=== PATIENT | male | born 1985 | race Caucasian/White ===

== ENCOUNTER 2018-02-27 19:16 | Emergency (ER) | payer SELFPAY ==
[2018-02-27 19:17] VITALS: BP 172/127; PULSE 89; RESP 20; TEMP 36.7; O2SAT 98; BMI 20.2
[2018-02-27 19:34] VITALS: BP 166/106; PULSE 80; RESP 14; O2SAT 98
--- NOTE | 2018-02-27 20:34 | EKG12_ITS ---
Test Reason : HTN Blood Pressure : / mmHG Vent. Rate : 079 BPM Atrial Rate : 079 BPM P-R Int : 170 ms QRS Dur : 106 ms QT Int : 386 ms P-R-T Axes : 079 088 053 degrees QTc Int : 442 ms Normal sinus rhythm with sinus arrhythmia Normal ECG Confirmed by AYESHA TAI, JUVENTINO ([id number]), newspaper managing editor WILLIAN JACQUES ([id number]) on 03/06/2018 3:25:24 PM Referred By: PABLITO Confirmed By:JUVENTINO HODGE MD
--- NOTE | 2018-02-27 20:37 | ED.RN ---
NO OLD EKGS IN MUSE.
[2018-02-27 20:48] LABS: Absolute Lymphocyte Count 0.86 X10^3/ul (0.83-4.51); Absolute Neutrophil Count 3.6 X10^3/uL (2.0-7.7); Basophil# 0.03 X10^3/uL; Basophil% 0.6 % (0-1); Eosinophil# 0.01 X10^3/uL; Eosinophils% 0.2 % (0-5); Hematocrit 48.6 % (40-54); Hemoglobin 16.9 g/dl (13.0-16.5); Lymphocyte # 0.86 X10^3/ul (4.0); Lymphocyte % 16.5 % (19-41); Mean Corp Hgb Conc 34.8 g/gl (32-36); Mean Corpuscular Hgb 34.7 pg (27.0-32.0); Mean Corpuscular Volume 99.8 fL (80-94); Mean Platelet Vol. 11.1 fl (6.2-12.0); Monocyte# 0.66 X10^3/uL; Monocyte% 12.7 % (0-10); Neutrophil # 3.63 X10^3/uL (2.7-7.7); Neutrophil % 69.8 % (47-70); Platelet Count 159 K/mm3 (150-450); RBC Distribution Width CV 12.9 % (11.6-14.6); RBC Distribution Width SD 47.3 fl (35.1-43.9); Red Blood Count 4.87 M/mm3 (4.6-6.2); White Blood Count 5.2 K/mm3 (4.4-11.0)
[2018-02-27 20:49] LABS: POSITIVE COUNT NO; POSITIVE DIFFERENTIAL NO; POSITIVE MORPHOLOGY NO
--- NOTE | 2018-02-27 20:52 | ED.VISSUMM ---
- ER Visit Summary Date of Service: 02/27/18 Chief Complaint: [] History of Present Illness: The patient is a 33 M [] Physical Examination: [] Test Results: [] Emergency Department Course and Treatment: [] Treatment Plan: [] Disposition: [] Impression: [] This note was generated with [employer] dictation software. It may contain incorrect words, spelling, and punctuation that were not noted in review of the chart prior to signing ED Disposition - Plan for ED Patient: Chief Complaint: Hypertension Referrals: Latesha Clarke [Primary Care Provider] -
--- NOTE | 2018-02-27 20:57 | ED.DCSUM_ITS ---
- ER Visit Summary Date of Service: 02/27/18 Chief Complaint: [] History of Present Illness: The patient is a 33 M [] Physical Examination: [] Test Results: [] Emergency Department Course and Treatment: [] Treatment Plan: [] Disposition: [] Impression: [] This note was generated with [employer] dictation software. It may contain incorrect words, spelling, and punctuation that were not noted in review of the chart prior to signing ED Disposition - Plan for ED Patient: Chief Complaint: Hypertension Referrals: Latesha Clarke [Primary Care Provider] -
[2018-02-27 20:59] LABS: ALB/GLOB Ratio 0.9 RATIO (0.9-2.4); AST(SGOT) 60 U/L (15-37); Alanine Aminotransfer ALT/SGPT 36 U/L (16-61); Albumin, Serum 4.1 g/dL (3.2-5.0); Alkaline Phosphatase 69 U/L (45-117); Anion Gap 8 (5-15); BUN 8 mg/dL (7-18); BUN/Creat Ratio 8.2 RATIO (10-20); Calcium,Total 8.9 mg/dL (8.5-10.1); Chloride 101 mmol/L (98-107); Creatinine, Serum 0.98 mg/dL (0.70-1.30); EST Glomerular Filtration Rate 93 mL/min (>60); Est Glom Filt Rate - Afr Amer 113 mL/min (>60); Estimated Creatinine Clearance 97.87 ml/min; Globulin 4.5 g/dL (2.2-4.2); Glucose 137 mg/dL (74-106); Potassium 4.4 mmol/L (3.5-5.1); Protein, Total 8.6 g/dL (6.4-8.2); Sodium Level 135 mmol/L (136-145)
[2018-02-27] MEDS: 0.9% Normal Saline 1,000 ML 999 ML IV (20:59)
[2018-02-27] MEDS: LORazepam 2 MG/ML Syringe 1 MG IV (20:59)
--- NOTE | 2018-02-27 21:01 | ED.DCSUM_ITS ---
History of Present Illness Chief Complaint: Hypertension Informant: Patient Onset: Today Narrative: Patient has had 1-2 weeks of malaise, increased fatigue, lightheadedness off and on, and feeling shaky off and on. He checked his blood pressure today and multiple times it was in the 160s systolic, which is why he presents to the ER. He denies a headache. He has had intermittent periumbilical abdominal cramping. Most of his symptoms are worse when he has not drank alcohol, he states he admits he is a bit of an alcoholic, he drinks beer. He also smokes but does no other illicit substances. He has attended some counseling sessions in [place], which are essentially similar to personalized AA, but he states he has not been in a while. He is not here for detox and does not desire it right now. His last drink was last night, almost 24 hours ago. Past Medical History - Allergies and Home Meds Allergies/Adverse Reactions: Allergies No Known Allergies Allergy (Verified 02/27/18 19:18) Primary Care Physician: Latesha Clarke [ALLIED HEALTH PROFESSIONAL] - Smoking Status: Current every day smoker Alcohol: Heavy Drugs: None Review of Systems General: Reports: Malaise, - - lightheaded off and on. Denies: Chills, Fever, Sweats Cardiovascular: Denies: Chest pain, Palpitations Respiratory: Denies: Dyspnea, Cough, Dyspnea on exertion Gastrointestinal: Reports: Abdominal pain - intermittent, not present now. Denies: Nausea, Vomiting, Diarrhea, Melena, Hematochezia Genitourinary: Denies: Dysuria, Hematuria, Frequency Musculoskeletal: Denies: Myalgias, Neck pain, Back pain, Swelling, Extremity Pain Skin: Denies: Rash Neurological: Reports: - - tremor/shaky. no vertigo.. Denies: Headache, Weakness, Numbness Psych: Denies: Suicidal thoughts, Suicidal ideations Endocrine: Denies: Polyuria, Polydipsia Hematologic: Denies: Easy bruising, Easy bleeding Allergy: Denies: Uticaria, Swelling of the mouth, Swelling of the tongue Physical Exam Vital Signs/Narrative: Vital Signs Temp Pulse Resp BP Pulse Ox 02/27/18 19:34 80 14 166/106 H 98 02/27/18 19:17 98.1 F 89 20 H 172/127 H 98 Inital Vital Signs reviewed: Yes General: Well nourished, Well developed, Cachectic Head: Normocephalic, Atraumatic Eyes: Perrl, EOMI ENT: Moist mucous membranes, No rhinorrhea Neck: Supple, Nontender Cardiovascular: Regular rate, Regular rhythm, No murmurs Respiratory: No distress, CTA bilaterally, Chest nontender Abdomen: Soft, Nontender, Nondistended, Normal bowel sounds Back: Nontender, Normal Inspection Extremities: Nontender, No edema Skin: Normal color, No rash Neurological: Alert - and not confused; appropriate answers to questions., Oriented x3, Cranial nerves II-XII grossly intact, Normal Strength, Normal Sensation, Normal DTR, - - tremulous, no myoclonus/seizure activity Psychological: Normal affect Diagnostic/Tx/Re-eval Laboratory Results 02/27/18 02/27/18 02/27/18 19:30 19:30 19:30 WBC 5.2 RBC 4.87 Hgb 16.9 H Hct 48.6 MCV 99.8 H MCH 34.7 H MCHC 34.8 RDW 12.9 RDW Differential 47.3 H Plt Count 159 MPV 11.1 Immature Gran % (Auto) 0.200 Neut % (Auto) 69.8 Lymph % (Auto) 16.5 L [place] % (Auto) 12.7 H Eos % (Auto) 0.2 Baso % (Auto) 0.6 Absolute Neuts (auto) 3.6 Absolute Lymphs (auto) 0.86 Total Counted Not Reportable Sodium 135 L Potassium 4.4 Chloride 101 Carbon Dioxide 26.0 Anion Gap 8 BUN 8 Creatinine 0.98 Estim Creat Clear Calc 97.87 Est GFR (MDRD) Af Amer 113 Est GFR (MDRD) Non-Af 93 BUN/Creatinine Ratio 8.2 L Glucose 137 H Calcium 8.9 Total Bilirubin 0.60 AST 60 H ALT 36 Alkaline Phosphatase 69 Total Protein 8.6 H Albumin 4.1 Globulin 4.5 H Albumin/Globulin Ratio 0.9 Urine Color Urine Clarity Urine pH Ur Specific [place] Urine Protein Urine Glucose (UA) Urine Ketones Urine Occult Blood Urine Nitrite Urine Bilirubin Urine Urobilinogen Ur Leukocyte Esterase Urine RBC Urine WBC Ur Squamous Epith Cells Urine Bacteria Urine Mucus Ethyl Alcohol 9.0 02/27/18 21:00 WBC RBC Hgb Hct MCV MCH MCHC RDW RDW Differential Plt Count MPV Immature Gran % (Auto) Neut % (Auto) Lymph % (Auto) [place] % (Auto) Eos % (Auto) Baso % (Auto) Absolute Neuts (auto) Absolute Lymphs (auto) Total Counted Sodium Potassium Chloride Carbon Dioxide Anion Gap BUN Creatinine Estim Creat Clear Calc Est GFR (MDRD) Af Amer Est GFR (MDRD) Non-Af BUN/Creatinine Ratio Glucose Calcium Total Bilirubin AST ALT Alkaline Phosphatase Total Protein Albumin Globulin Albumin/Globulin Ratio Urine Color Yellow Urine Clarity Clear Urine pH 7.0 Ur Specific [place] 1.010 Urine Protein 15 H Urine Glucose (UA) Normal Urine Ketones 5 H Urine Occult Blood Negative Urine Nitrite Negative Urine Bilirubin 1 H Urine Urobilinogen 4 H Ur Leukocyte Esterase 100 H Urine RBC 0-5 SEEN Urine WBC 0-5 SEEN Ur Squamous Epith Cells 0-5 SEEN Urine Bacteria 0 SEEN Urine Mucus RARE Ethyl Alcohol - Medical Decision Making Labs and urinalysis are unremarkable. His alcohol level was low. He states this is an unusual day for him to have not drink any alcohol. I suspect this is mild alcohol withdrawal. I offered detox several times and he declines and plans on going home and drinking. For that reason I think it is okay that he be discharged home. He is keenly alert and oriented x3 and is not delirious. I gave him a dose of Ativan and he felt better and was less tremulous. His blood pressure is down to 150. He does not remember the last time he checked his blood pressure and I do not think he needs emergency treatment of these numbers here, but I think it is reasonable to put him on a low-dose of something before he follows up with his doctor. He was encouraged to return at any time if he decides he wants detox and he was agreeable to that. ED Disposition - Plan for ED Patient: Disposition: Home or Assisted Living Chief Complaint: Hypertension Diagnosis: Alcohol withdrawal, Alcoholism, Elevated blood pressure reading Instructions: ED Hypertension Poss Prescriptions: Amlodipine Besylate [Norvasc] 5 mg PO DAILY #30 tab Referrals: Zeenat Smith DO [Primary Care Provider] - As soon as possible
[2018-02-27 21:05] LABS: Bacteria 0 SEEN /hpf (None Seen)
[2018-02-27 21:17] VITALS: BP 161/96; PULSE 82; RESP 15; O2SAT 98
[2018-02-27 21:25] LABS: Color, Urine Yellow (Yellow); Glucose, Dipstick Normal (Normal); Ketone-Dipstick 5 mg/dl (Negative); Leukocyte Esterase-Dipstick 100 /ul (Negative); Nitrite-Dipstick Negative (Negative); Occult Blood-Urine Negative /ul (Negative); Protein-Dipstick 15 mg/dl (Negative); Urine Clarity Clear (Clear); Urine Urobilinogen 4 mg/dl (Normal)
[2018-02-27 21:26] LABS: Urine Bilirubin Dipstick 1 mg/dL (Negative)
[2018-02-27 21:32] LABS: Mucous, Urine RARE /hpf (<or=2+); Red Blood Cells-Urine 0-5 SEEN /hpf (0-5); Squamous Epithelial Cells - UA 0-5 SEEN /hpf (0-5); White Blood Cells 0-5 SEEN /hpf (0-5)
[2018-02-27 23:00] VITALS: BP 161/98; PULSE 82; RESP 17; O2SAT 98
[2018-02-28 00:25] VITALS: BP 155/112; PULSE 81; RESP 17; O2SAT 99
== END 2018-02-28 00:26 | disposition home or self-care (01) ==
PROVIDERS: Emergency Provider Emergency Medicine; Family Provider Internal Medicine; PCP Internal Medicine
DX: F10.239 Alcohol dependence with withdrawal, unspecified (principal); Y90.9 Presence of alcohol in blood, level not specified; R03.0 Elevated blood-pressure reading, without diagnosis of hypertension
CPT/HCPCS: 80053; 80320; 81001; 85025; 93005; 99284; A4216; G0480

== ENCOUNTER 2022-02-05 17:09 | Emergency (ER) | payer OTHER, SELFPAY ==
[2022-02-05 17:10] VITALS: BP 133/105; PULSE 80; PULSE 83; RESP 16; RESP 18; TEMP 36.1; O2SAT 98; BMI 20.2
--- NOTE | 2022-02-05 17:16 | EX.ED.DYSGE1 ---
HPI History of Present Illness Chief Complaint: Lower Extremity Injury Narrative Narrative: Patient presents with right foot pain after hitting his foot 5 days ago. He is able to ambulate but has pain especially fourth and fifth toe region. No other injury no ankle pain or knee pain. [facility] Medical History Hypertension Mitral valve prolapse Home Medications atenolol 50 mg tablet 50 mg PO BID 02/05/22 [History Last Taken Unknown] Allergy/AdvReac Type Severity Reaction Status Date / Time No Known Allergies Allergy Verified 12/25/19 07:48 Social History Smoking Status: Current every day smoker tobacco type: cigarettes alcohol intake: current ROS ROS ED ROS Narrative Past medical history: Hypertension, history of alcohol abuse Medications: Reviewed Social history: Smoker Review of systems: Musculoskeletal: Foot pain as in HPI Skin: No abrasions or lacerations Neurological: No weakness or paresthesias Hematologic: No easy bleeding or easy bruising EXAM Physical Exam Narrative Exam Narrative: Physical exam General: Patient does not appear in significant distress . Head: Normocephalic, Atraumatic Neck: No C-spine tenderness Cardiovascular: Normal distal pulses Back: Nontender, Normal Inspection. Extremities: Right foot shows tenderness over the fourth and fifth toes there is a contusion in that region and very slight swelling. Neurovascularly intact. No other injury. Skin: No abrasions, no lacerations Neurological: Normal strength and sensation Const Vital Signs: 02/05/22 17:10 02/05/22 17:10 Temperature 96.9 F L 96.9 F L Temperature Source Temporal Temporal Pulse Rate 83 80 Respiratory Rate 16 18 Blood Pressure 133/105 H 133/105 H Blood Pressure Mean 114 114 Pulse Ox 98 98 Oxygen Delivery Method Room Air Room Air MDM MDM Radiography Diagnostic Testing: Right foot x-ray read by me shows a proximal proximal fifth phalanx with slight displacement. Treatment and Re-Evaluation Narrative: Patient will be kevin taped, placed in a postop shoe and sent to podiatry. Discharge Plan Triage Chief Complaint: Lower Extremity Injury ED Provider: Sean Lin Dx/Rx/DC Orders Clinical Impression: Fracture of toe, Contusion of foot Instructions: Fx Finger Toe Prescriptions: No Action atenolol 50 mg tablet 50 mg PO BID Label Comments: TAKE 1 TABLET BY MOUTH TWICE A DAY Primary Care Provider: Stevenson Lincoln Referrals: Evelin Anders DPM [Med Staff - Active Staff] - 2 Days eZenat Smith DO [Med Staff - Slurry Control Operator Helper] - Disposition Disposition: Home, Self Care
--- NOTE | 2022-02-05 17:30 | RAD_ITS ---
STUDY: X-RAY - RIGHT FOOT CLINICAL: Male, 37 years old. trauma TECHNIQUE: 3 view(s) of the foot. COMPARISON: None. FINDINGS: Normal talus, calcaneus, and tarsal bones. Normal visualized subtalar, talonavicular, calcaneocuboid, tarsal and tarsometatarsal articulations. Normal metatarsi. Normal metatarsophalangeal joint of the great toe. Normal tibial and fibular sesamoid bones. Normal interphalangeal joint of the great toe. Normal phalanges of the great toe. Normal second through fifth metatarsophalangeal joints. Acute slightly medially displaced transverse fracture the base of the fifth proximal phalanx. The soft tissue structures are unremarkable. RAD/Foot min 3 Views IMPRESSION: Acute slightly medially displaced transverse fracture the base of the fifth proximal phalanx. Electronically Signed: Mike Adams MD at 17:47 EDT ,
[2022-02-05 17:56] VITALS: PULSE 84; RESP 17; O2SAT 97
== END 2022-02-05 17:57 | disposition home or self-care (01) ==
PROVIDERS: Emergency Provider Emergency Medicine; PCP Internal Medicine; Visit Provider Emergency Medicine
DX: S90.31XD Contusion of right foot, subsequent encounter (principal); W22.09XD Striking against other stationary object, subsequent encounter; F17.200 Nicotine dependence, unspecified, uncomplicated; I10 Essential (primary) hypertension
CPT/HCPCS: 73630; 99283